=== PATIENT | male | born 1945 | race Caucasian/White ===

== ENCOUNTER 2017-06-04 22:58 | Inpatient (IN) | payer OTHER ==
[~2017-06-04] VITALS: Ht 167.6 cm; Wt 60.8 kg
[~2017-06-04 22:58] MED LIST: ACET325T33 PO; ASPI-664 PO; CIPR500T4 PO; TAMS-14 PO
[2017-06-05] VITALS (8 sets, daily range): BP systolic 81–165; BP diastolic 50–91; PULSE 73–90; RESP 16–20; TEMP 98.2; Ht 167.6 cm; Wt 60.8 kg
[2017-06-05] MEDS ORDERED: morphine 4 MG/ML VIAL IV STA (01:14)
[2017-06-05] MEDS ORDERED: KETOROLAC 30 MG INJ IV STA (01:14)
[2017-06-05] MEDS ORDERED: LIDOCAINE 1% (MDV) 20 ML INJ SC ONE (01:30)
[2017-06-05 01:48] LABS: BASOPHILS % 0.3 % (0.0-2.0); EOSINOPHILS # 0.6 10^3/ul (0.0-0.5); EOSINOPHILS % 5.4 % (0.0-7.0); HEMATOCRIT 38.1 % (42.0-52.0); HEMOGLOBIN 11.8 g/dl (14.0-18.0); LYMPHOCYTES # 1.4 10^3/ul (0.8-2.9); LYMPHOCYTES % 13.1 % (15.0-51.0); MEAN CORPUSCULAR HEMOGLOBIN 26.8 pg (29.0-33.0); MEAN CORPUSCULAR VOLUME 86.6 fl (82.0-101.0); MEAN PLATELET VOLUME 9.8 fl (7.4-10.4); MONOCYTE # 1.2 10^3/ul (0.3-0.9); MONOCYTES % 11.3 % (0.0-11.0); NEUTROPHIL # 7.4 10^3/ul (1.6-7.5); NEUTROPHILS % 69.3 % (39.0-77.0); PLATELET COUNT 187 10^3/UL (140-415); RED CELL DISTRIBUTION WIDTH 15.3 % (11.5-14.5); WHITE BLOOD COUNT 10.6 10^3/ul (4.8-10.8)
--- NOTE | 2017-06-05 02:08 | RADRPT ---
PROCEDURE: Noncontrast CT examination of the right knee. CLINICAL INDICATION: Right knee swelling. TECHNIQUE: 5 views of the right knee. COMPARISON: None FINDINGS: Mildly comminuted fracture of the distal right femoral metadiaphysis and intertrochanteric region of the right femur. Sclerotic changes seen in the distal femur, perhaps representing osseous metastati c deposits. This is not clear. Recommend CT correlation. There is a moderate joint effusion. Vascular calcifications. IMPRESSION: 1. Mildly comminuted fracture of the distal metadiaphysis of the right femur, with extension into th e intertrochanteric femur. 2. Sclerotic changes in the distal femurs suggest osseous metastatic deposits. 3. Findings may represent fracture of pathologic bone. 4. Recommend CT correlation. 5. Moderate joint effusion. RPTAT: [facility] Physician Addy Date Time Electronically viewed and signed by Physician Addy on 06/05/2017 02:08 RS/
[2017-06-05] MEDS ORDERED: morphine 10 MG INJ IV ONE (03:00)
[2017-06-05 04:08] LABS: CALCIUM 10.1 mg/dl (8.4-10.2); CREATININE 1.38 mg/dl (0.61-1.24); POTASSIUM 4.9 mmol/L (3.5-5.1)
--- NOTE | 2017-06-05 04:12 | RADRPT ---
PROCEDURE: CT right knee without contrast CLINICAL INDICATION: Right knee fracture TECHNIQUE: CT right knee with contrast was performed with axial, coronal and sagittal images. The administered radiation dose was CTDI vol = 18.21 mGy, DLP = 334.64 mGy-cm. One or more the following dose reduction techniques were utilized: Automated exposure control, adjus tment of the mA and / or kV according to patient's size, or use of iterative reconstruction techniqu e. COMPARISON: X-rays of the right knee 06/05/2017 FINDINGS: There is marked diffuse osteopenia. There is a comminuted impacted fracture of the distal metaphysea l region of the femur with periosteal reaction suggestive of healing and a subacute fracture. There is posterior displacement and angulation of the main distal fragment. No dislocation is seen . There is an large effusion/hemarthrosis with synovial lining calcification. Arterial calcification IMPRESSION: Marked diffuse osteopenia. Comminuted impacted fracture of the distal metaphyseal region of the femu r with periosteal reaction suggestive of healing and a subacute fracture. There is posterior displac ement and angulation of the main distal fragment. Large effusion/hemarthrosis with synovial lining c alcification. Genu valgus is apparent. Please see above. RPTAT: HJES .Delfino Whitman MD, MD Date Time Electronically viewed and signed by .Delfino Whitman MD, on 06/05/2017 04:12 .S/
--- NOTE | 2017-06-05 04:15 | RADRPT ---
PROCEDURE: RIGHT knee x-ray CLINICAL INDICATION: Fracture, radiologist wants better AP view TECHNIQUE: AP, cross-table lateral and oblique views of the knee were obtained. COMPARISON: X-rays of the right knee and CT right knee of 06/05/2017 FINDINGS: There is marked diffuse osteopenia. There is a comminuted impacted fracture of the distal metaphysea l region of the femur with periosteal reaction suggestive of healing and a subacute fracture. There is posterior displacement and angulation of the main distal fragment. No dislocation is seen . There is an large effusion/hemarthrosis with synovial lining calcification. Arterial calcification IMPRESSION: Marked diffuse osteopenia. Comminuted impacted fracture of the distal metaphyseal region of the femu r with periosteal reaction suggestive of healing and a subacute fracture. There is posterior displac ement and angulation of the main distal fragment. Large effusion/hemarthrosis with synovial lining c alcification. Mild genu valgus is apparent. Please see above. RPTAT: HJES .Delfino Whitman MD, MD Date Time Electronically viewed and signed by .Delfino Whitman MD, on 06/05/2017 04:15 .S/
[2017-06-05] MEDS ORDERED: ACETAMINOPHEN 325 MG TAB PO PRN ×2 (05:00→06:00)
[2017-06-05] MEDS ORDERED: ONDANSETRON 4 MG INJ IV PRN ×2 (05:00→06:00)
--- NOTE | 2017-06-05 05:18 | RADRPT ---
PROCEDURE: XR Chest. CLINICAL INDICATION: Preop TECHNIQUE: AP Portable chest. COMPARISON: No pertinent prior examinations were submitted for comparison. FINDINGS: The cardiomediastinal silhouette is normal.The aortic arch is calcified. No focal consolidation, ple ural effusion or pneumothorax is seen. The osseous structures are intact. IMPRESSION: No radiographic evidence of acute cardiopulmonary disease. Aortic atherosclerosis. Physician Bisi Date Time Electronically viewed and signed by Tammi Coates Physician on 06/05/2017 05:18 /
[2017-06-05] MEDS ORDERED: SOD CHLORIDE 0.9% 1,000 ML IV ONE (05:30)
--- NOTE | 2017-06-05 05:43 | ERA ---
ER Documentation Chief Complaint Date/Time DATE: 06/05/17 TIME: 05:25 Chief Complaint right knee swelling x 1 week HPI This 71-year-old male presents with right knee pain going on for a week. He states he has had x-rays and ultrasound at another hospital. He has been ambulatory but this morning it hurts so bad that he could not walk. States that he did fall one month ago and hurt his knee. Denies any other medical problems denies any issues currently except for his knee pain. Reviewed his EMR and say that he was previously admitted for a UTI with very mild sepsis couple of years ago. At that time he had no medical problems not even hypertension. ROS All systems reviewed and are negative except as per history of present illness. Medications Home Meds Active Scripts Acetaminophen* (Tylenol*) 325 Mg Tablet, 1 TAB PO Q6 Y for PAIN AND OR ELEVATED TEMP, #20 TAB Prov:CORY PEARL 05/20/15 Ciprofloxacin Hcl* (Ciprofloxacin Hcl*) 500 Mg Tablet, 500 MG PO BID for 10 Days , TAB Prov:RANJANA GAMING 04/15/15 Reported Medications Aspirin* (Aspirin* EC) 81 Mg Tablet.dr, 81 MG PO DAILY, TAB 04/15/15 Tamsulosin Hcl* (Flomax*) 0.4 Mg Cap.er.24h, 0.4 MG PO HS, CAP 04/15/15 Allergies Allergies: Coded Allergies: No Known Allergy (Unverified , 04/15/15) PMhx/Soc History of Surgery: No Anesthesia Reaction: No Hx Neurological Disorder: Yes (recent stroke but with "on and off residual") Hx Respiratory Disorders: No Hx Cardiac Disorders: No Hx Psychiatric Problems: No Hx Miscellaneous Medical Probl: Yes (severe PVD, previous stroke) Hx Alcohol Use: Yes Hx Substance Use: No Hx Tobacco Use: Yes Smoking Status: Smoker,current status unk Physical Exam Vitals Vital Signs Date Time Temp Pulse Resp B/P Pulse Ox O2 Delivery O2 Flow Rate FiO2 06/05/17 02:30 98.2 86 20 134/64 99 Room Air 06/04/17 23:03 98.2 102 20 134/64 99 Physical Exam Const: [] No acute distress. Head: Atraumatic Eyes: Normal Conjunctiva ENT: Normal External Ears, Nose and Mouth. Neck: Full range of motion..~ No meningismus. Resp: Clear to auscultation bilaterally Cardio: Regular rate and rhythm, no murmurs Abd: Soft, non tender, non distended. Normal bowel sounds Skin: No petechiae or rashes Back: No midline or flank tenderness Ext: Right knee with significant circumferential swelling, normal in color which is the same side as the other knee however the right knee is very warm to the touch. Distal pulses intact. Neur: Awake and alertOriented 3, no focal deficits Psych: Normal Mood and Affect Result Diagram: 06/05/1713306/05/17130 Results 24 hrs Laboratory Tests Test 06/05/17 01:31 06/05/17 01:34 Sodium Level 141mmol/L Potassium Level 4.9mmol/L Chloride Level 105mmol/L Carbon Dioxide Level 29mmol/L Anion Gap 12 Blood Urea Nitrogen 41mg/dl Creatinine 1.38mg/dl Glucose Level 107mg/dl Calcium Level 10.1mg/dl White Blood Count 10.610^3/ul Red Blood Count 4.4010^6/ul Hemoglobin 11.8g/dl Hematocrit 38.1% Mean Corpuscular Volume 86.6fl Mean Corpuscular Hemoglobin 26.8pg Mean Corpuscular Hemoglobin Concent 31.0g/dl Red Cell Distribution Width 15.3% Platelet Count 74624^3/UL Mean Platelet Volume 9.8fl Neutrophils % 69.3% Lymphocytes % 13.1% Monocytes % 11.3% Eosinophils % 5.4% Basophils % 0.3% Nucleated Red Blood Cells % 0.0/100WBC Neutrophils # 7.410^3/ul Lymphocytes # 1.410^3/ul Monocytes # 1.210^3/ul Eosinophils # 0.610^3/ul Basophils # 0.010^3/ul Nucleated Red Blood Cells # 0.010^3/ul Current Medications Medications (Trade) Dose Ordered Sig/Michael Route PRN Reason Start Time Stop Time Status Last Admin Dose Admin Ketorolac Tromethamine (Toradol) 30 mg ONCE STAT IV 06/05/17 01:14 06/05/17 01:16 DC 06/05/17 01:37 Morphine Sulfate (morphine) 4 mg ONCE STAT IV 06/05/17 01:14 06/05/17 01:16 DC 06/05/17 01:37 Lidocaine (Xylocaine 1% (Mdv) 20 ml) 20 ml ONCE ONCE SC 06/05/17 01:30 06/05/17 01:31 DC Morphine Sulfate (morphine) 6 mg ONCE ONCE IV 06/05/17 03:00 06/05/17 03:01 DC 06/05/17 02:58 Ondansetron HCl (Zofran Inj) 4 mg BRIDGE ORDER PRN IV NAUSEA AND/OR VOMITING 06/05/17 05:00 06/06/17 04:59 Acetaminophen (Tylenol Tab) 650 mg ER BRIDGE PRN PO MILD PAIN/FEVER 06/05/17 05:00 06/06/17 04:59 Procedures/MDM Elderly male with no other medical problems with apparent distal femur fracture that he had been previously ambulating on was no longer able to ambulate. His fall occurred approximately 1 month ago he says. This time is approximately consistent with the appearance of the fracture in the imaging. Spoke with Dr. patino, orthopedist on-call states that the fracture has a unusual appearance and does appear to request that I get a CT and a repeat AP view. Said he will review these in the morning and make a decision on how the patient could be best treated. I also obtain preoperative chest x-ray and EKG as well as basic laboratories. Patient does have some anemia with no signs of action. No signs of cardiac ischemia. EKG interpretation: Normal sinus rhythm rate of 78, no ST-T wave changes concerning for acute ischemia, QT of 499, Q waves in inferior leads, partial right bundle branch block. Knee x-ray interpretation: Distal femur fracture is partially comminuted and intra-articular. Chest x-ray interpretation: I see no acute process, I see no pneumothorax, no infiltrates, no widened mediastinum, no fractures. Departure Diagnosis: Primary Impression: Femoral distal fracture Additional Impressions: Renal insufficiency Mild anemia JAY DUNCAN DO Jun 05, 2017 05:40
[2017-06-05] MEDS ORDERED: LISI-313 PO (05:55)
[2017-06-05] MEDS ORDERED: PRED20TA PO (05:55)
[2017-06-05] MEDS ORDERED: MELO-216 PO (05:55)
[2017-06-05] MEDS ORDERED: CARV6.2579 PO (05:55)
[2017-06-05] MEDS ORDERED: morphine 4 MG/ML VIAL IV PRN (06:00)
[2017-06-05] MEDS ORDERED: MELOXICAM 15 MG TAB PO PRN (07:00)
--- NOTE | 2017-06-05 07:31 | HP ---
Date/Time of Note Date/Time of Note DATE: 06/05/17 TIME: 07:20 Assessment/Plan VTE Prophylaxis VTE Prophylaxis Intervention: SCD's Lines/Catheters IV Catheter Type (from Nrs): Saline Lock Assessment/Plan Assessment/Plan 1. Right distal femur fracture - Pt reported felling down 3 months ago and being evaluated at outside hospital and was not told about fracture. This could be pathological fracture -Awaiting orthopedic evaluation -Pain management 2. Right knee swelling -Secondary to above -Per imaging, there is a large effusion/hemarthrosis with synovial lining calcification. patient to be evaluated by Ortho, so we will await the recommendation 3. 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 Patient was discharged to follow-up with his PCP, but he said he did not. He seemed not to know about problem with his pancreas. -Consider further workup in-house, especially given his femur fracture could be pathological 4. CKD -Avoid nephrotoxins -Monitor any function closely HPI/ROS Admit Date/Time Admit Date/Time Jun 05, 2017 at 04:47 Hx of Present Illness This is a 71-year-old male Kd, abdominal aneurysm, PVD and probable pancreatic mass who presented to the emergency department complaining of right knee swelling and pain. He said he fell about 3 months ago for which he was evaluated at an outside hospital. Today he noted significant pain, warmth and worsening swelling of the right knee and as such she decided to come to ER for evaluation. When he presented to the ER x-ray of the right knee as well as CT scan showed marked diffuse osteopenia, comminuted impacted fracture of the distal metaphyseal region of the femur with periosteal reaction suggestive of healing and a subacute fracture, posterior displacement and angulation of the main distal fragment and large effusion/hemarthrosis with synovial lining calcification. . PMH/Family/Social Social History Smoking Status: Former smoker Exam/Review of Systems Vital Signs Vitals Vital Signs Date Time Temp Pulse Resp B/P Pulse Ox O2 Delivery O2 Flow Rate FiO2 06/05/17 05:40 97.8 84 20 117/89 96 Room Air Intake and Output 06/04/17 06/04/17 06/05/17 15:00 23:00 07:00 Intake Total 240 ml Balance 240 ml Exam Constitutional: alert, oriented, well developed Head: atraumatic, normocephalic Eyes: EOMI, PERRL Respiratory: clear to auscultation, normal air movement Cardiovascular: nl pulses, regular rate and rhythm Gastrointestinal: non-tender, soft Musculoskeletal: other (Right knee swelling, tenderness, warmth to touch. Also right thigh tenderness) Labs Result Diagram: 06/05/174 06/05/17 013 Medications Medications Current Medications Carvedilol (Coreg) 6.25 mg BID PO ; Start 06/05/17 at 09:00 Lisinopril (Zestril) 5 mg DAILY PO ; Start 06/05/17 at 09:00 Meloxicam (Mobic) 15 mg DAILY PRN PO PAIN; Start 06/05/17 at 07:00 Prednisone (Prednisone) 20 mg DAILY PO ; Start 06/05/17 at 09:00 Morphine Sulfate (morphine) 4 mg Q4H PRN IV PAIN Last administered on t 06:18; Admin Dose 4 MG; Start 06/05/17 at 06:00 Acetaminophen/ Hydrocodone Bitart ([place] (5/325)) 1 tab Q4H PRN PO PAIN; Start 06/05/17 at 06:00 Ondansetron HCl (Zofran Inj) 4 mg Q6H PRN IV NAUSEA AND/OR VOMITING; Start at 06:00 Acetaminophen (Tylenol Tab) 650 mg Q6H PRN PO PAIN AND OR ELEVATED TEMP; Start 06/05/17 at 06:00 Heparin Sodium (Porcine) (Heparin (5000 Units/0.5 ml)) 5,000 unit Q12 SC ; Start 06/05/17 at 09:00 KADI HILTON MD Jun 05, 2017 07:31
[2017-06-05] MEDS: LISINOPRIL 5 MG TAB PO SCH (08:45)
[2017-06-05] MEDS: predniSONE 20 MG TAB PO SCH (08:46)
[2017-06-05] MEDS: HEPARIN 5,000 UNIT/0.5 ML VIAL SC SCH ×2 (08:48→20:22)
[2017-06-05] MEDS: HYDROCODONE/APAP (5/325) TAB PO PRN ×2 (10:13→20:16)
--- NOTE | 2017-06-05 14:59 | CONS ---
DATE OF ADMISSION: 06/05/2017 DATE OF CONSULTATION: 06/05/2017 CHIEF COMPLAINT: Right knee pain. HISTORY OF PRESENT ILLNESS: This is a 71-year-old male who is complaining of right knee pain. According to the patient and his son, he sustained a fall over 6 weeks ago. The patient has been weightbearing using a walker. The son states that following the fall over a month ago, he had developed swelling of his right knee. He had been seen by his primary care doctor. He denies any recent history of falls or trauma. He denies any fevers or chills. He has no other complaints. PAST MEDICAL HISTORY: Chronic kidney disease, coronary artery disease. MEDICATION: 1. Coreg 6.25 mg. 2. Zestril 5 mg. 3. Prednisone 20 mg. PAST SURGICAL HISTORY: Denies any previous surgeries. SOCIAL HISTORY: Denies any current tobacco, alcohol, or drug use. FAMILY HISTORY: Noncontributory. ALLERGIES: NO KNOWN DRUG ALLERGIES. REVIEW OF SYSTEMS: Negative except per HPI. PHYSICAL EXAMINATION: VITAL SIGNS: Temperature 97.8, blood pressure 117/89, pulse of 84, respiratory rate of 20. GENERAL: Patient is in no acute distress. He is resting comfortably in bed. EXTREMITIES: Right knee, the knee is held in a flexed position. He is nontender over the medial lateral joint line and patella. The knee is in valgus alignment. He has a 20 degree flexion contracture. He is able to flex to 60 degrees. He is neurovascularly intact in the right lower extremity with intact sensation to light touch throughout the right lower extremity and palpable dorsalis pedis pulse. IMAGING: X-rays right knee, 2 views of the right knee demonstrate a nondisplaced fracture of the distal femur. The fracture appears to be extra-articular. There is osteopenia. There is evidence of callus formation. CT of the right lower extremity demonstrated a subacute comminuted fracture of the distal metaphyseal region with periosteal reaction and callus formation. There is posterior displacement of the distal fragment. There is an effusion. IMPRESSION: A 71-year-old male who fell over 6 weeks ago with a subacute right closed extra-articular distal femur fracture. PLAN: I explained to the patient and his son that he sustained a fracture of the distal femur, likely over 6 weeks ago when he fell. He has been weightbearing since his injury. There is evidence of callus formation and healing on imaging. At this time, given the subacute nature of the fracture, I do not recommend surgical intervention. I recommend application of knee immobilizer. He should be non-weightbearing on the right lower extremity. I explained to the patient and his son that he may have deformity of the knee. There is also the risk of stiffness as he already has a flexion contracture, malunion, nonunion, need for future total knee arthroplasty, and continued pain. The patient can follow up in my office on outpatient basis. Dictated By: Jake Gray MD /ladonna/zoe /Document#: [id number]
[2017-06-05] MEDS: SOD CHLORIDE 0.9% 1,000 ML IV SCH (15:45)
[2017-06-06 01:47] VITALS: BP 101/66; RESP 18
[2017-06-06] MEDS: SOD CHLORIDE 0.9% 1,000 ML IV SCH ×4 (02:36→21:52)
[2017-06-06 05:10] LABS: BASOPHILS % 0.2 % (0.0-2.0); EOSINOPHILS # 0.1 10^3/ul (0.0-0.5); EOSINOPHILS % 1.7 % (0.0-7.0); HEMATOCRIT 32.3 % (42.0-52.0); LYMPHOCYTES # 1.7 10^3/ul (0.8-2.9); LYMPHOCYTES % 20.3 % (15.0-51.0); MEAN CORPUSCULAR HEMOGLOBIN 26.5 pg (29.0-33.0); MEAN CORPUSCULAR VOLUME 85.7 fl (82.0-101.0); MEAN PLATELET VOLUME 9.7 fl (7.4-10.4); MONOCYTE # 0.9 10^3/ul (0.3-0.9); MONOCYTES % 10.3 % (0.0-11.0); NEUTROPHIL # 5.6 10^3/ul (1.6-7.5); NEUTROPHILS % 67.1 % (39.0-77.0); PLATELET COUNT 167 10^3/UL (140-415); RED BLOOD COUNT 3.77 10^6/ul (4.70-6.10); RED CELL DISTRIBUTION WIDTH 14.8 % (11.5-14.5); WHITE BLOOD COUNT 8.3 10^3/ul (4.8-10.8)
[2017-06-06 05:35] LABS: CALCIUM 9.1 mg/dl (8.4-10.2); CREATININE 0.99 mg/dl (0.61-1.24); MAGNESIUM 1.8 mg/dl (1.7-2.5); PHOSPHORUS 3.1 mg/dl (2.5-4.9)
[2017-06-06] MEDS: HYDROCODONE/APAP (5/325) TAB PO PRN ×2 (07:21→21:16)
[2017-06-06 07:51] VITALS: BP 99/58; RESP 18
[2017-06-06] MEDS: LISINOPRIL 5 MG TAB PO SCH (09:00)
[2017-06-06] MEDS: predniSONE 20 MG TAB PO SCH (09:20)
[2017-06-06] MEDS: HEPARIN 5,000 UNIT/0.5 ML VIAL SC SCH ×2 (09:22→21:25)
--- NOTE | 2017-06-06 13:33 | PN ---
Date/Time of Note Date/Time of Note DATE: 06/06/17 TIME: 13:25 Assessment/Plan VTE Prophylaxis VTE Prophylaxis Intervention: heparin Lines/Catheters IV Catheter Type (from Nrs): Peripheral IV Urinary Cath still in place: No Assessment/Plan Chief Complaint/Hosp Course 1. Right distal femur fracture -Ortho evaluation appreciated, fracture subacute and recommendation is for patient of knee immobilizer and to be nonweightbearing on that right leg -Pain management -Placement in a rehab, nurse outreach case manager aware 2. History of pancreatic lesion per 2014 CT Will check a CA-19-9, consider further workup if elevated 4. Prerenal acute kidney injury on CKD-improved with IV fluids -Avoid nephrotoxins 5. Debility secondary fracture and possible dementia Patient is very unkept and will need SNF placement unless family feels that they can care for him Prophylaxis: Heparin Problems: Subjective 24 Hr Interval Summary Musculoskeletal: bone/joint pain Exam/Review of Systems Vital Signs Vitals Vital Signs Date Time Temp Pulse Resp B/P Pulse Ox O2 Delivery O2 Flow Rate FiO2 06/06/17 07:51 98.0 76 18 99/58 98 06/05/17 20:23 Room Air Intake and Output 06/05/17 06/05/17 06/06/17 15:00 23:00 07:00 Intake Total 1160 ml 1340 ml Output Total 650 ml 1600 ml Balance 510 ml -260 ml Exam Constitutional: alert, oriented Respiratory: clear to auscultation Cardiovascular: regular rate and rhythm Gastrointestinal: soft, No distended Musculoskeletal: nl extremities to inspection Results Result Diagram: 06/06/17 0437 06/06/17 0437 Results 24 hrs Laboratory Tests Test 06/06/17 04:37 White Blood Count 8.3 # Red Blood Count 3.77 L Hemoglobin 10.0 L Hematocrit 32.3 L Mean Corpuscular Volume 85.7 Mean Corpuscular Hemoglobin 26.5 L Mean Corpuscular Hemoglobin Concent 31.0 L Red Cell Distribution Width 14.8 H Platelet Count 167 Mean Platelet Volume 9.7 Neutrophils % 67.1 Lymphocytes % 20.3 Monocytes % 10.3 Eosinophils % 1.7 Basophils % 0.2 Nucleated Red Blood Cells % 0.0 Neutrophils # 5.6 Lymphocytes # 1.7 Monocytes # 0.9 Eosinophils # 0.1 Basophils # 0.0 Nucleated Red Blood Cells # 0.0 Sodium Level 136 Potassium Level 4.0 Chloride Level 104 Carbon Dioxide Level 30 Anion Gap 6 L Blood Urea Nitrogen 32 H Creatinine 0.99 Glucose Level 100 Calcium Level 9.1 Phosphorus Level 3.1 Magnesium Level 1.8 Medications Medications Current Medications Carvedilol (Coreg) 6.25 mg BID PO ; Start 06/05/17 at 09:00 Lisinopril (Zestril) 5 mg DAILY PO ; Start 06/05/17 at 09:00 Meloxicam (Mobic) 15 mg DAILY PRN PO PAIN Last administered on 06/06/17 09:26 ; Admin Dose 15 MG; Start 06/05/17 at 07:00 Prednisone (Prednisone) 20 mg DAILY PO Last administered on 06/06/17 09:20; Admin Dose 20 MG; Start 06/05/17 at 09:00 Morphine Sulfate (morphine) 4 mg Q4H PRN IV PAIN Last administered on 06:18; Admin Dose 4 MG; Start 06/05/17 at 06:00 Acetaminophen/ Hydrocodone Bitart ([place] (5/325)) 1 tab Q4H PRN PO PAIN Last administered on 06/06/17 07:21; Admin Dose 1 TAB; Start 06/05/17 at 06:00 Ondansetron HCl (Zofran Inj) 4 mg Q6H PRN IV NAUSEA AND/OR VOMITING; Start at 06:00 Acetaminophen (Tylenol Tab) 650 mg Q6H PRN PO PAIN AND OR ELEVATED TEMP; Start 06/05/17 at 06:00 Heparin Sodium (Porcine) 5000 unit 5,000 unit Q12 SC Last administered on 09:22; Admin Dose 5,000 UNIT; Start 06/05/17 at 09:00 Sodium Chloride (NS) 1,000 ml @ 100 mls/hr Q10H IV Last administered on 12:01; Admin Dose 100 MLS/HR; Start 06/05/17 at 16:00 JACKIE POLK Jun 06, 2017 13:33
[2017-06-06 19:10] VITALS: BP 94/59; RESP 18
[2017-06-07 01:05] VITALS: BP 117/71; RESP 18
[2017-06-07 01:17] LABS: PROTEIN, TOTAL 6.4 g/dL (6.1-8.1)
[2017-06-07] MEDS: HYDROCODONE/APAP (5/325) TAB PO PRN ×3 (04:06→20:46)
[2017-06-07 05:27] LABS: BASOPHILS % 0.1 % (0.0-2.0); EOSINOPHILS # 0.1 10^3/ul (0.0-0.5); EOSINOPHILS % 0.9 % (0.0-7.0); HEMATOCRIT 32.2 % (42.0-52.0); HEMOGLOBIN 10.3 g/dl (14.0-18.0); LYMPHOCYTES # 1.8 10^3/ul (0.8-2.9); MEAN CORPUSCULAR HEMOGLOBIN 27.5 pg (29.0-33.0); MEAN CORPUSCULAR VOLUME 86.1 fl (82.0-101.0); MEAN PLATELET VOLUME 10.2 fl (7.4-10.4); MONOCYTES % 11.1 % (0.0-11.0); NEUTROPHIL # 5.9 10^3/ul (1.6-7.5); NEUTROPHILS % 67.3 % (39.0-77.0); PLATELET COUNT 182 10^3/UL (140-415); RED BLOOD COUNT 3.74 10^6/ul (4.70-6.10); RED CELL DISTRIBUTION WIDTH 14.6 % (11.5-14.5); WHITE BLOOD COUNT 8.8 10^3/ul (4.8-10.8)
[2017-06-07 06:19] LABS: CALCIUM 9.2 mg/dl (8.4-10.2); CREATININE 0.71 mg/dl (0.61-1.24)
[2017-06-07 08:09] VITALS: BP 106/65; RESP 16
[2017-06-07] MEDS: LISINOPRIL 5 MG TAB PO SCH (09:00)
[2017-06-07] MEDS: predniSONE 20 MG TAB PO SCH (09:27)
[2017-06-07] MEDS: SOD CHLORIDE 0.9% 1,000 ML IV SCH ×2 (09:27→18:15)
[2017-06-07] MEDS: HEPARIN 5,000 UNIT/0.5 ML VIAL SC SCH ×2 (09:34→20:57)
[2017-06-07 12:48] LABS: ALBUMIN 2.9 g/dl (3.3-4.9); ALBUMIN/GLOBULIN RATIO 0.96; CREATININE 0.74 mg/dl (0.61-1.24); POTASSIUM 3.8 mmol/L (3.5-5.1); TOTAL PROTEIN 5.9 g/dl (6.1-8.1)
[2017-06-07 14:27] LABS: CREATININE, RANDOM URINE 152 mg/dL (20-370); PROTEIN/CREATININE RATIO 362 mg/g creat (22-128)
[2017-06-07 19:25] VITALS: BP 100/58; RESP 18
--- NOTE | 2017-06-07 19:27 | PN ---
Date/Time of Note Date/Time of Note DATE: 06/07/17 TIME: 19:26 Assessment/Plan VTE Prophylaxis VTE Prophylaxis Intervention: heparin Lines/Catheters IV Catheter Type (from Nrs): Peripheral IV Urinary Cath still in place: No Assessment/Plan Chief Complaint/Hosp Course 1. 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 History of pancreatic lesion per 2014 CT Will check a CA-19-9, consider further workup if elevated 4. Prerenal acute kidney injury on CKD-improved with IV fluids -Avoid nephrotoxins 5. Debility secondary fracture and possible dementia Home PT/OT to be arranged. Likely dispo tomorrow to home w services Prophylaxis: Heparin Problems: Subjective 24 Hr Interval Summary Free Text/Dictation Patinet is comfortable States he wants to return home, not interested in rehab placement Exam/Review of Systems Vital Signs Vitals Vital Signs Date Time Temp Pulse Resp B/P Pulse Ox O2 Delivery O2 Flow Rate FiO2 06/07/17 08:09 98.0 73 16 106/65 97 06/05/17 20:23 Room Air Intake and Output 06/06/17 06/06/17 06/07/17 15:00 23:00 07:00 Intake Total 900 ml 500 ml Output Total 1200 ml 1900 ml Balance -300 ml -1400 ml Exam Constitutional: alert, oriented, well developed Psych: nl mood/affect, no complaints Head: atraumatic, normocephalic Eyes: EOMI, PERRL, nl conjunctiva, nl lids, nl sclera ENMT: nl external ears & nose, nl lips & teeth, nl nasal mucosa & septum Neck: non-tender, supple Respiratory: clear to auscultation, normal air movement Cardiovascular: nl pulses, regular rate and rhythm Gastrointestinal: nl liver, spleen, non-tender, soft Musculoskeletal: nl extremities to inspection, nl gait and stance Extremities: normal pulses Neurological: HEAD CONTROL CLERK II-XII intact, nl mental status, nl speech, nl strength Skin: nl turgor, No rash or lesions Lymph: nl lymph nodes Results Result Diagram: 06/07/17 0428 06/07/17 1145 Results 24 hrs Laboratory Tests Test 06/07/17 04:28 06/07/17 11:45 White Blood Count 8.8 Red Blood Count 3.74 L Hemoglobin 10.3 L Hematocrit 32.2 L Mean Corpuscular Volume 86.1 Mean Corpuscular Hemoglobin 27.5 L Mean Corpuscular Hemoglobin Concent 32.0 Red Cell Distribution Width 14.6 H Platelet Count 182 Mean Platelet Volume 10.2 Neutrophils % 67.3 Lymphocytes % 20.0 Monocytes % 11.1 H Eosinophils % 0.9 Basophils % 0.1 Nucleated Red Blood Cells % 0.0 Neutrophils # 5.9 Lymphocytes # 1.8 Monocytes # 1.0 H Eosinophils # 0.1 Basophils # 0.0 Nucleated Red Blood Cells # 0.0 Sodium Level 137 137 Potassium Level 4.0 3.8 Chloride Level 107 106 Carbon Dioxide Level 28 27 Anion Gap 6 L 8 Blood Urea Nitrogen 20 # 16 Creatinine 0.71 0.74 Glucose Level 110 103 Calcium Level 9.2 9.0 CA 19-9 Antigen 32.9 Total Bilirubin 0.0 L Direct Bilirubin 0.00 Indirect Bilirubin 0.0 Aspartate Amino Transf (AST/SGOT) 19 Alanine Aminotransferase (ALT/SGPT) 31 Alkaline Phosphatase 71 Total Protein 5.9 L Albumin 2.9 L Globulin 3.00 Albumin/Globulin Ratio 0.96 Medications Medications Current Medications Carvedilol (Coreg) 6.25 mg BID PO Last administered on 06/06/17 21:16; Admin Dose 6.25 MG; Start 06/05/17 at 09:00; Status Future Hold Lisinopril (Zestril) 5 mg DAILY PO ; Start 06/05/17 at 09:00; Status Future Hold Meloxicam (Mobic) 15 mg DAILY PRN PO PAIN Last administered on 06/06/17 09:26 ; Admin Dose 15 MG; Start 06/05/17 at 07:00 Prednisone (Prednisone) 20 mg DAILY PO Last administered on 06/07/17 09:27; Admin Dose 20 MG; Start 06/05/17 at 09:00 Morphine Sulfate (morphine) 4 mg Q4H PRN IV PAIN Last administered on 06:18; Admin Dose 4 MG; Start 06/05/17 at 06:00 Acetaminophen/ Hydrocodone Bitart ([place] (5/325)) 1 tab Q4H PRN PO PAIN Last administered on 06/07/17 10:49; Admin Dose 1 TAB; Start 06/05/17 at 06:00 Ondansetron HCl (Zofran Inj) 4 mg Q6H PRN IV NAUSEA AND/OR VOMITING; Start at 06:00 Acetaminophen (Tylenol Tab) 650 mg Q6H PRN PO PAIN AND OR ELEVATED TEMP; Start 06/05/17 at 06:00 Heparin Sodium (Porcine) 5000 unit 5,000 unit Q12 SC Last administered on 09:34; Admin Dose 5,000 UNIT; Start 06/05/17 at 09:00 Sodium Chloride (NS) 1,000 ml @ 100 mls/hr Q10H IV Last administered on 18:15; Admin Dose 100 MLS/HR; Start 06/05/17 at 16:00 FROY MACHADO MD Jun 07, 2017 19:27
[2017-06-07 22:31] LABS: ALBUMIN 3.1 g/dL (3.8-4.8)
[2017-06-08 01:20] VITALS: BP 92/53; RESP 18
[2017-06-08] MEDS: SOD CHLORIDE 0.9% 1,000 ML IV SCH ×2 (07:00→12:59)
[2017-06-08 07:50] VITALS: BP 103/57; RESP 18
[2017-06-08] MEDS: predniSONE 20 MG TAB PO SCH (08:33)
[2017-06-08] MEDS: HYDROCODONE/APAP (5/325) TAB PO PRN ×3 (08:34→20:06)
[2017-06-08] MEDS: HEPARIN 5,000 UNIT/0.5 ML VIAL SC SCH ×2 (08:39→20:12)
--- NOTE | 2017-06-08 09:25 | RADRPT ---
Echocardiogram Report Patient Name: QUETA PALMER Gender: Male Date: 1945 Study Date: 07-Jun-2017 Customer Support Consultant: Deng [facility] Location: [address] Ref. Physician: FROY MACHADO Quality: Adequate Procedures: Transthoracic echocardiogram with complete 2D, M-Mode, and doppler examination. Indications: Concern for cardiomyopathy. 2D/M Mode Doppler Measurement Value Normal Ranges Measurement Value Normal Ranges LVIDd 2D 4.5 3.5 - 5.6 cm AV Peak [place] 1.5 m/sec LVIDs 2D 3.3 2.1 - 4.1 cm AV Peak PG 9.0 mmHg FS 2D 27.2 % AI Peak PG 70.0 mmHg LVPWd 2D 1.3 0.6 - 1.1 cm AI Peak [place] 4.2 m/sec IVSd 2D 1.3 0.6 - 1.1 cm AI PHT 333.0 msec IVS/LVPW 2D 1.0 LVOT Peak [place] 1.1 m/sec AoR Diam 2D 2.7 2.0 - 3.7 cm LVOT Peak PG 5.0 mmHg LA/Ao 2D 1 0 - 1 MV E Peak [place] 1.1 m/sec EDV 2D 92.3 cm3 MV A Peak [place] 1.5 m/sec ESV 2D 35.6 cm3 MV E/A 0.7 LA Dimen 2D 3.9 2.3 - 4.0 cm MV Decel Time 352 msec MV E/A 0.7 TR Peak [place] 2.9 m/sec TR Peak PG 35.0 mmHg RVSP 45.0 mmHg Findings Left Ventricle: Normal left ventricular cavity size. Mild concentric left ventricular hypertrophy. Mild left ventricular systolic dysfunction. Ejection fraction is visually estimated at 45 %. Tissue Doppler/Mitral Doppler indices are consistent with impaired relaxation (Stage I diastolic dysfunction). Multiple segmental wall motion abnormalities. Right Ventricle: Normal right ventricular size. Normal right ventricular systolic function. Left Atrium: The left atrium is normal in size. Right Atrium: The right atrium is normal in size. Mitral Valve: Mitral valve leaflets appear mildly thickened. Mild mitral annular calcification. Trace mitral regurgitation. Aortic Valve: Aortic sclerosis without stenosis. Moderate to severe aortic valve regurgitation. Tricuspid Valve: Normal appearance of the tricuspid valve. Estimated peak PA systolic pressure 45 mmHg. There is mild tricuspid regurgitation. Pulmonic Valve: Pulmonic valve not well visualized. There is trace pulmonic regurgitation. Pericardium: Trivial pericardial effusion. Aorta: Normal aortic root. IVC: Dilated inferior vena cava with poor inspiratory collapse consistent with elevated right atrial pressures. Conclusions 1.Normal left ventricular cavity size. Mild concentric left ventricular hypertrophy. Mild left ventricular systolic dysfunction. Ejection fraction is visually estimated at 45 %. Tissue Doppler/Mitral Doppler indices are consistent with impaired relaxation (Stage I diastolic dysfunction). Multiple segmental wall motion abnormalities. 2.Mitral valve leaflets appear mildly thickened. Mild mitral annular calcification. Trace mitral regurgitation. 3.Aortic sclerosis without stenosis. Moderate to severe aortic valve regurgitation. 4.Normal appearance of the tricuspid valve. Estimated peak PA systolic pressure 45 mmHg. There is mild tricuspid regurgitation. 5.Dilated inferior vena cava with poor inspiratory collapse consistent with elevated right atrial pressures. Electronically Signed By: Adria Sevilla 08-Jun-2017 09:24:49 -0700 Patient Name: QUETA PALMER Study Date: 07-Jun-2017 [id number]
--- NOTE | 2017-06-08 14:48 | PN ---
Date/Time of Note Date/Time of Note DATE: 06/08/17 TIME: 14:47 Assessment/Plan VTE Prophylaxis VTE Prophylaxis Intervention: heparin Lines/Catheters IV Catheter Type (from Nrsg): Peripheral IV Urinary Cath still in place: No Assessment/Plan Chief Complaint/Hosp Course 71 yo male with osteopenia who presents wtih distal femur fracture: Right distal femur fracture -Ortho evaluation appreciated, fracture subacute and recommendation is for patient of knee immobilizer and to be nonweightbearing on that right leg -Pain management -Placement in a rehab, case assistant aware Osteoporosis on imaging: - TSH normal. AM testosterone level pending Prerenal acute kidney injury on CKD-improved with IV fluids -Avoid nephrotoxins Debility secondary fracture Home PT/OT to be arranged. Likely dispo tomorrow to home w services Prophylaxis: Heparin Problems: Subjective 24 Hr Interval Summary Free Text/Dictation No change to clinical status Awaiting options for home rehab vs SNF Patient comfortable, no pain currently Exam/Review of Systems Vital Signs Vitals Vital Signs Date Time Temp Pulse Resp B/P Pulse Ox O2 Delivery O2 Flow Rate FiO2 06/08/17 07:50 98.4 69 18 103/57 97 06/05/17 20:23 Room Air Intake and Output 06/07/17 06/07/17 06/08/17 15:00 23:00 07:00 Intake Total 100 ml 2550 ml 580 ml Output Total 900 ml 1700 ml Balance 100 ml 1650 ml -1120 ml Exam Constitutional: alert, oriented, well developed Psych: nl mood/affect, no complaints Head: atraumatic, normocephalic Eyes: EOMI, PERRL, nl conjunctiva, nl lids, nl sclera ENMT: nl external ears & nose, nl lips & teeth, nl nasal mucosa & septum Neck: non-tender, supple Respiratory: clear to auscultation, normal air movement Cardiovascular: nl pulses, regular rate and rhythm Gastrointestinal: nl liver, spleen, non-tender, soft Musculoskeletal: nl extremities to inspection, nl gait and stance Extremities: normal pulses Neurological: 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 II-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 intact, nl mental status, nl speech, nl strength Skin: nl turgor, No rash or lesions Lymph: nl lymph nodes Results Result Diagram: 06/07/17 0428 06/07/17 1145 Results 24 hrs Laboratory Tests Test 06/08/17 04:29 Thyroid Stimulating Hormone (TSH) 0.730 Medications Medications Current Medications Carvedilol (Coreg) 6.25 mg BID PO Last administered on 06/06/17 21:16; Admin Dose 6.25 MG; Start 06/05/17 at 09:00; Status Future Hold Lisinopril (Zestril) 5 mg DAILY PO ; Start 06/05/17 at 09:00; Status Future Hold Meloxicam (Mobic) 15 mg DAILY PRN PO PAIN Last administered on 06/06/17 09:26 ; Admin Dose 15 MG; Start 06/05/17 at 07:00 Prednisone (Prednisone) 20 mg DAILY PO Last administered on 06/08/17 08:33; Admin Dose 20 MG; Start 06/05/17 at 09:00 Morphine Sulfate (morphine) 4 mg Q4H PRN IV PAIN Last administered on 06:18; Admin Dose 4 MG; Start 06/05/17 at 06:00 Acetaminophen/ Hydrocodone Bitart ([place] (5/325)) 1 tab Q4H PRN PO PAIN Last administered on 06/08/17 14:36; Admin Dose 1 TAB; Start 06/05/17 at 06:00 Ondansetron HCl (Zofran Inj) 4 mg Q6H PRN IV NAUSEA AND/OR VOMITING; Start at 06:00 Acetaminophen (Tylenol Tab) 650 mg Q6H PRN PO PAIN AND OR ELEVATED TEMP; Start 06/05/17 at 06:00 Heparin Sodium (Porcine) 5000 unit 5,000 unit Q12 SC Last administered on 08:39; Admin Dose 5,000 UNIT; Start 06/05/17 at 09:00 Sodium Chloride (NS) 1,000 ml @ 100 mls/hr Q10H IV Last administered on 07:00; Admin Dose 100 MLS/HR; Start 06/05/17 at 16:00 FROY MACHADO MD Jun 08, 2017 14:48
[2017-06-08] MEDS: ATORVASTATIN 20 MG TAB PO SCH (20:05)
[2017-06-08 20:15] VITALS: BP 98/67; RESP 20
[2017-06-09 02:00] VITALS: BP 114/77; RESP 18
[2017-06-09] MEDS: HYDROCODONE/APAP (5/325) TAB PO PRN ×3 (08:09→20:00)
[2017-06-09] MEDS: HEPARIN 5,000 UNIT/0.5 ML VIAL SC SCH ×2 (08:14→20:05)
[2017-06-09 08:49] VITALS: BP 107/67; RESP 18
[2017-06-09] MEDS ORDERED: ASPIRIN 81 MG TAB PO SCH (09:00)
--- NOTE | 2017-06-09 13:51 | PN ---
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 AM testosterone level pending Prerenal acute kidney injury on CKD-improved with IV fluids -Avoid nephrotoxins Debility secondary fracture CAD: - Aspirin and statin Home PT/OT to be arranged. Likely dispo tomorrow to home w services Prophylaxis: Heparin Problems: Subjective 24 Hr Interval Summary Free Text/Dictation Patient resting comfortably Awaiting transfer to SNF Exam/Review of Systems Vital Signs Vitals Vital Signs Date Time Temp Pulse Resp B/P Pulse Ox O2 Delivery O2 Flow Rate FiO2 06/09/17 08:49 97.8 73 18 107/67 97 06/05/17 20:23 Room Air Intake and Output 06/08/17 06/08/17 06/09/17 15:00 23:00 07:00 Intake Total 2320 ml 360 ml Output Total 1300 ml 1800 ml Balance 1020 ml -1440 ml Exam Constitutional: alert, oriented, well developed Psych: nl mood/affect, no complaints Head: atraumatic, normocephalic Eyes: EOMI, PERRL, nl conjunctiva, nl lids, nl sclera ENMT: nl external ears & nose, nl lips & teeth, nl nasal mucosa & septum Neck: non-tender, supple Respiratory: clear to auscultation, normal air movement Cardiovascular: nl pulses, regular rate and rhythm Gastrointestinal: nl liver, spleen, non-tender, soft Musculoskeletal: nl extremities to inspection, nl gait and stance Extremities: normal pulses 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, nl mental status, nl speech, nl strength Skin: nl turgor, No rash or lesions Lymph: nl lymph nodes Results Result Diagram: 06/07/17 0428 06/07/17 1145 Medications Medications Current Medications Carvedilol (Coreg) 6.25 mg BID PO Last administered on 06/06/17 21:16; Admin Dose 6.25 MG; Start 06/05/17 at 09:00; Status Future Hold Lisinopril (Zestril) 5 mg DAILY PO ; Start 06/05/17 at 09:00; Status Future Hold Meloxicam (Mobic) 15 mg DAILY PRN PO PAIN Last administered on 06/06/17 09:26 ; Admin Dose 15 MG; Start 06/05/17 at 07:00 Acetaminophen/ Hydrocodone Bitart ([place] (5/325)) 1 tab Q4H PRN PO PAIN Last administered on 06/09/17 08:09; Admin Dose 1 TAB; Start 06/05/17 at 06:00 Ondansetron HCl (Zofran Inj) 4 mg Q6H PRN IV NAUSEA AND/OR VOMITING; Start at 06:00 Acetaminophen (Tylenol Tab) 650 mg Q6H PRN PO PAIN AND OR ELEVATED TEMP; Start 06/05/17 at 06:00 Heparin Sodium (Porcine) (Heparin (5000 Units/0.5 ml)) 5,000 unit Q12 SC Last administered on 06/09/17 08:14; Admin Dose 5,000 UNIT; Start 06/05/17 at 09:00 Atorvastatin Calcium (Lipitor) 20 mg HS PO Last administered on 06/08/17 20:05 ; Admin Dose 20 MG; Start 06/08/17 at 21:00 Aspirin (Aspirin) 81 mg DAILY PO Last administered on 06/09/17 08:09; Admin Dose 81 MG; Start 06/09/17 at 09:00 FROY MACHADO MD Jun 09, 2017 13:51
[2017-06-09 15:02] VITALS: BP 110/62; RESP 20
[2017-06-09] MEDS ORDERED: ATOR20TA65 PO (15:42)
[2017-06-09] MEDS ORDERED: ASPI81TA3 PO (15:42)
[2017-06-09 15:46] LABS: ABNORMAL IP MESSAGE 1; BASOPHILS % 0.3 % (0.0-2.0); EOSINOPHILS # 0.3 10^3/ul (0.0-0.5); EOSINOPHILS % 2.6 % (0.0-7.0); HEMATOCRIT 33.9 % (42.0-52.0); LYMPHOCYTES # 2.6 10^3/ul (0.8-2.9); LYMPHOCYTES % 20.2 % (15.0-51.0); MEAN CORPUSCULAR HEMOGLOBIN 27.8 pg (29.0-33.0); MEAN CORPUSCULAR HGB CONC 32.4 g/dl (32.0-37.0); MEAN CORPUSCULAR VOLUME 85.6 fl (82.0-101.0); MEAN PLATELET VOLUME 9.6 fl (7.4-10.4); MONOCYTE # 1.7 10^3/ul (0.3-0.9); MONOCYTES % 13.5 % (0.0-11.0); NEUTROPHIL # 7.9 10^3/ul (1.6-7.5); NEUTROPHILS % 62.5 % (39.0-77.0); PLATELET COUNT 239 10^3/UL (140-415); POSITIVE DIFF @See below; RED BLOOD COUNT 3.96 10^6/ul (4.70-6.10); RED CELL DISTRIBUTION WIDTH 14.8 % (11.5-14.5); WHITE BLOOD COUNT 12.6 10^3/ul (4.8-10.8)
[2017-06-09 16:10] LABS: ALBUMIN 2.8 g/dl (3.3-4.9); ALBUMIN/GLOBULIN RATIO 0.96; CALCIUM 9.3 mg/dl (8.4-10.2); CREATININE 0.91 mg/dl (0.61-1.24); POTASSIUM 3.7 mmol/L (3.5-5.1); TOTAL PROTEIN 5.7 g/dl (6.1-8.1)
[2017-06-09 19:40] VITALS: BP 102/62; PULSE 72; RESP 18
[2017-06-09] MEDS: ATORVASTATIN 20 MG TAB PO SCH (20:00)
[2017-06-10 17:26] LABS: FREE TESTOSTERONE 65.7 pg/mL (30.0-135.0)
[2017-06-11 00:46] LABS: PROTEIN, TOTAL 5.3 g/dL (6.1-8.1)
[2017-06-11 15:31] LABS: ALBUMIN 2.5 g/dL (3.8-4.8)
== END 2017-06-09 20:40 | DRG 560 ==
LOC: E/R 22:58 → MS1 06-05 04:45 → UNDOADMIN 06-05 04:47
PROVIDERS: ADMIT Internal Medicine; ATTEND Internal Medicine
DX: S72.491D Other fracture of lower end of right femur, subsequent encounter for closed fracture with routine healing (principal); N17.9 Acute kidney failure, unspecified; Z91.81 History of falling; N18.9 Chronic kidney disease, unspecified; F03.90 Unspecified dementia, unspecified severity, without behavioral disturbance, psychotic disturbance, mood disturbance, and anxiety; M81.0 Age-related osteoporosis without current pathological fracture
CPT/HCPCS: 71010; 73562; 73700; 80048; 80053; 82570; 83735; 84100; 84155; 84156; 84165; 84166; 84403; 84443; 85025; 86301; 93005; 93306; 96374; 96375; 96376; 97110; 97161; 97530; J1644; J1885; J2270; J7030; J7512

== ENCOUNTER 2017-06-21 12:24 | Emergency (ER) | payer OTHER ==
[~2017-06-21] VITALS: Ht 165.1 cm; Wt 62.3 kg
[~2017-06-21 12:24] MED LIST changes: -ACET325T33 PO; -ASPI-664 PO; +ASPI81TA3 PO; +ATOR20TA65 PO; +CARV6.2579 PO; -CIPR500T4 PO; +LISI-313 PO; +MELO-216 PO; -TAMS-14 PO
[2017-06-21 12:27] VITALS: Ht 165.1 cm; Wt 62.3 kg
[2017-06-21] MEDS ORDERED: HEPA500021 IJ (13:45)
[2017-06-21] MEDS ORDERED: ACET-2047 PO (13:45)
[2017-06-21] MEDS ORDERED: LISI-313 PO ×2 (13:46→13:48)
[2017-06-21] MEDS ORDERED: LEVO500T72 PO (13:46)
[2017-06-21] MEDS ORDERED: MELO-216 PO (13:47)
[2017-06-21] MEDS ORDERED: MULTI PO (13:50)
[2017-06-21] MEDS ORDERED: HYDR-906 PO (13:50)
[2017-06-21] MEDS ORDERED: ACET-141 PO (13:51)
[2017-06-21] MEDS ORDERED: OLOP2.5D BOTH EYES (13:51)
[2017-06-21 14:31] LABS: ADD UMIC YES; UR ASCORBIC ACID 20 mg/dL (NEGATIVE); UR BILIRUBIN (Dip) NEGATIVE (NEGATIVE); UR BLOOD (Dip) 1+ mg/dL (NEGATIVE); UR CLARITY CLEAR (CLEAR); UR COLOR YELLOW (YELLOW); UR GLUCOSE (Dip) NEGATIVE (NEGATIVE); UR KETONES (Dip) NEGATIVE (NEGATIVE); UR LEUKOCYTE ESTERASE (Dip) NEGATIVE Leu/ul (NEGATIVE); UR NITRITE (Dip) NEGATIVE (NEGATIVE); UR RBC 18 /HPF (0-5); UR SPECIFIC GRAVITY (Dip) 1.013 (1.003-1.030); UR TOTAL PROTEIN (Dip) NEGATIVE (NEGATIVE); UR UROBILINOGEN (Dip) NEGATIVE (NEGATIVE)
--- NOTE | 2017-06-21 14:37 | ERD ---
ER Documentation Chief Complaint Date/Time DATE: 06/21/17 TIME: 14:34 Chief Complaint unable to urinate since last night, c/o bladder pain HPI 71-year-old male presents for inability to urinate since the night before. He has seen a urologist in the past but is been some time. He has pain only at his bladder. He is currently taking Levaquin for urinary tract infection. He has no other problems no other abnormalities. He has no saddle anesthesia or leg weakness. No back pain ROS All systems reviewed and are negative except as per history of present illness. Medications Home Meds Active Scripts Aspirin (Aspirin) 81 Mg Chew, 81 MG PO DAILY for 30 Days, #30 TAB Prov:FROY MACHADO MD 06/09/17 Atorvastatin Calcium (Atorvastatin Calcium) 20 Mg Tablet, 20 MG PO HS for 30 Days, #30 TAB Prov:FROY MACHADO MD 06/09/17 Reported Medications Acetaminophen* (Acetaminophen*) 500 MG Extra Strength Tablet, 500 MG PO Q6 Y for PAIN AND OR ELEVATED TEMP, TAB 06/21/17 Olopatadine* (Pataday*) 0.2% - 2.5 Ml Drops, 1 DROP BOTH EYES DAILY for 7 Days, EA 06/21/17 Hydrocodone/Acetaminophen ([place] 5-325 Tablet) 1 Each Tablet, 1 EACH PO Q4 Y for SEVERE PAIN LEVEL 7-10, TAB 06/21/17 Multivitamins* (Theragran*) 1 Tab Tab, 1 TAB PO DAILY, TAB 06/21/17 Lisinopril* (Lisinopril*) 5 Mg Tablet, 5 MG PO DAILY, #30 TAB 06/21/17 Meloxicam* (Meloxicam*) 7.5 Mg Tablet, 15 MG PO DAILY, #30 TAB 06/21/17 Levofloxacin* (Levaquin*) 500 Mg Tablet, 500 MG PO DAILY for 7 Days, TAB 06/21/17 Heparin Sodium,Porcine/Pf (HEPARIN SOD 5,000 UNIT/ 0.5 ML) 5,000 Unit/0.5 Ml Vial, 5000 UNIT IJ Q12, VIAL 06/21/17 Acetaminophen* (Acetaminophen*) 650 Mg Tablet, 650 MG PO Q6H Y for PAIN AND OR ELEVATED TEMP, #30 TAB 06/21/17 Carvedilol* (Carvedilol*) 6.25 Mg Tablet, 6.25 MG PO BID, #60 TAB 06/05/17 Discontinued Reported Medications Lisinopril* (Lisinopril*) 5 Mg Tablet, 5 MG PO DAILY, #30 TAB 06/21/17 Lisinopril* (Lisinopril*) 5 Mg Tablet, 5 MG PO DAILY, #30 TAB 06/05/17 Meloxicam* (Meloxicam*) 7.5 Mg Tablet, 15 MG PO DAILY Y for PAIN, #30 TAB 06/05/17 Allergies Allergies: Coded Allergies: No Known Allergy (Unverified , 04/15/15) PMhx/Soc History of Surgery: Yes (R eye cyst surgery from childhood) Anesthesia Reaction: No Hx Neurological Disorder: No Hx Respiratory Disorders: No Hx Cardiac Disorders: Yes (HTN) Hx Psychiatric Problems: No Hx Miscellaneous Medical Probl: Yes (see note) Hx Alcohol Use: Yes (quit 3 mos ago) Hx Substance Use: No Hx Tobacco Use: Yes (quit 3 mos ago) Physical Exam Vitals Vital Signs Date Time Temp Pulse Resp B/P Pulse Ox O2 Delivery O2 Flow Rate FiO2 06/21/17 12:27 98.4 98 18 130/92 100 Physical Exam Const: [] Mild to moderate distress Head: Atraumatic Eyes: Normal Conjunctiva ENT: Normal External Ears, Nose and Mouth. Neck: Full range of motion..~ No meningismus. Resp: Clear to auscultation bilaterally Cardio: Regular rate and rhythm, no murmurs Abd: Soft, pubic fullness with tenderness about the whole area of fullness at the location of the bladder. Normal bowel sounds Skin: No petechiae or rashes Back: No midline or flank tenderness Ext: No cyanosis, or edema Neur: Awake and alert oriented 3, no focal deficits Results 24 hrs Laboratory Tests Test 06/21/17 14:10 Urine Color YELLOW Urine Clarity CLEAR Urine pH 6.0 Urine Specific [place] 1.013 Urine Ketones NEGATIVEmg/dL Urine Nitrite NEGATIVEmg/dL Urine Bilirubin NEGATIVEmg/dL Urine Urobilinogen NEGATIVEmg/dL Urine Leukocyte Esterase NEGATIVELeu/ul Urine Microscopic RBC 18/HPF Urine Microscopic WBC 1/HPF Urine Hemoglobin 1+mg/dL Urine Glucose NEGATIVEmg/dL Urine Total Protein NEGATIVEmg/dl Procedures/MDM Urinary retention possibly secondary to enlarged prostate is patient says he has had problems with prostate before. Head was easily placed in the emergency room with very little resistance producing 700 mL of urine. Patient has complete relief and no symptoms currently. Going to secure the Head in place a leg bag until the patient can see his urologist. Discharge with instructions see urologist in the next couple of days and return precautions. Urinalysis returned with no apparent urinary tract infection. Departure Diagnosis: Primary Impression: Retention, urine Condition: Stable Patient Instructions: Urinary Retention, Male Additional Instructions: Call your primary care doctor TOMORROW for an appointment with a urologist during the next 1-2 days.See the doctor sooner or return here if your condition worsens before your appointment time. JAY DUNCAN DO Jun 21, 2017 14:37
[2017-06-21 14:42] VITALS: BP 167/76; PULSE 96; RESP 18; TEMP 98
== END 2017-06-21 14:42 | disposition home or self-care (01) ==
LOC: E/R 12:24
DX: R33.9 Retention of urine, unspecified (principal); I10 Essential (primary) hypertension; Z79.82 Long term (current) use of aspirin; Z87.891 Personal history of nicotine dependence
CPT/HCPCS: 81001

== ENCOUNTER 2018-01-31 13:47 | Emergency (ER) | END 2018-01-31 17:53 | disposition home or self-care (01) ==